=== PATIENT | female | born 1930 | race Caucasian/White ===

== ENCOUNTER → 2017-01-04 | Outpatient (CLI) | payer MEDICARE, BC ==
--- NOTE | 2017-01-04 10:56 | MM ---
Reason for exam: clinical finding. Last mammogram was performed 7 years ago. History: Patient is postmenopausal. Family history of breast cancer in maternal aunt and breast cancer in sister. Benign right mammotome panel of the right breast, January 25, 2010. Benign excisional biopsy of the right breast, 2006. Indicated problem(s): lump or thickening in the left breast. Physical Findings: Nurse Summary: A 2cm nodule in the left breast at 12 o'clock (nurse mj). MG 3D Diag Mammo W/Cad GRZEGORZ Bilateral CC and MLO view(s) were taken. Prior study comparison: January 11, 2010, right breast mammogram dig work up. The breast tissue is heterogeneously dense. This may lower the sensitivity of mammography. Finding: There is an intermediate concern, suspicious 2.5 mm equal density round mass located 2 cm from the nipple. Previous mammotome biopsy in the right breast. There is a 1cm area at 6 o'clock in the right breast 6cm from nipple. Large pacemaker left breast obscures portions. New finding since January 11, 2010. These results were verbally communicated with the patient and result sheet given to the patient on 01/04/17. ASSESSMENT: Incomplete: need additional imaging evaluation, BI-RAD 0 RECOMMENDATION: Ultrasound of both breasts. [facility] will attempt to contact patient to return for ultrasound.
--- NOTE | 2017-01-04 11:05 | USB ---
Reason for exam: clinical finding. History: Patient is postmenopausal. Family history of breast cancer in maternal aunt and breast cancer in sister. Benign right mammotome panel of the right breast, January 25, 2010. Benign excisional biopsy of the right breast, 2006. US Breast Limited BILAT Left breast ultrasound includes all four quadrants, the retroareolar region and axilla. Finding demonstrates a 5 x 3 x 5mm oval, cystic lesion at 1 o'clock, a 24 x 16 x 21mm oval, cystic lesion with debris at BB at 11 o'clock which correlates with mammographic findings. Right breast ultrasound demonstrates a 7 x 4 x 3mm lobulated, mixed lesion at 3 o'clock, a 7 x 6 x 10mm lobulated mixed lesion at 5 o'clock and a 10 x 7 x 9mm oval, mixed lesion at 6 o'clock which correlates with mammographic findings. These results were verbally communicated with the patient and result sheet given to the patient on 01/04/17. ASSESSMENT: Suspicious, BI-RAD 4 RECOMMENDATION: Aspiration of both breasts. Called Dr. Hernandez with mammographic findings and has scheduled an appointment for the patient for 01/15/17 at 9:[address] Langley. PRELIMINARY REPORT CALLED AND FAXED TO DR. LANGLEY ON 01/04/17.
--- NOTE | 2017-01-04 16:07 | US ---
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 Pt poor historian, believes she is on thyroid meds GLAND SIZE: Right Lobe: 2.9 x 1.4 x 0.9 cm Overall Parenchyma: heterogenous Left Lobe: 2.9 x 1.2 x 1.0 cm Overall Parenchyma: heterogeneous Isthmus Thickness: 0.2 cm Bilateral neck scanned, no evidence of lymphadenopathy. Bilateral thyroid heterogeneous, small in siz e, no definite nodules visualized IMPRESSION: Unremarkable small thyroid
== END | disposition home or self-care (01) ==
LOC: RADMAMWWP 08:27
PROVIDERS: ATTEND Family Medicine
DX: N63.20 Unspecified lump in the left breast, unspecified quadrant (principal); R92.8 Other abnormal and inconclusive findings on diagnostic imaging of breast; E01.0 Iodine-deficiency related diffuse (endemic) goiter
CPT/HCPCS: 76536; 76642; G0204; G0279

== ENCOUNTER → 2017-06-14 | Outpatient (CLI) | payer MEDICARE, BC ==
--- NOTE | 2017-06-14 11:07 | XR ---
EXAMINATION TYPE: XR chest 2V DATE OF EXAM: 06/14/2017 COMPARISON: Prior chest x-ray July 28, 2011. HISTORY: Hypercalcemia and adrenal tumor. TECHNIQUE: Frontal and lateral views of the chest are obtained. FINDINGS: Osseous structures show degenerative changes in both shoulders and acromioclavicular joint s. There is cardiomegaly with atherosclerotic thoracic aorta and dual lead pacemaker/AICD. There is c hronic emphysematous change with bibasilar scarring and bilateral hilar prominence favoring underlyin g pulmonary artery hypertension. There is right midlung opacity silhouetting portion of right minor f issure suspicious for focal atelectasis and/or infiltrate in the anterior inferior right upper lobe. Left lung is clear. IMPRESSION: Chronic emphysematous change and cardiomegaly with patchy right anterior inferior upper l obe atelectasis and/or infiltrate.
[2017-06-14 13:56] LABS: Ionized Calcium 5.1 mg/dL (4.5-5.3)
[2017-06-14 13:59] LABS: Calcium 10.2 mg/dL (8.4-10.2); Potassium 4.5 mmol/L (3.5-5.1)
--- NOTE | 2017-06-14 15:01 | CT ---
EXAMINATION TYPE: CT abdomen pelvis wo con DATE OF EXAM: 06/14/2017 COMPARISON: 10/25/2015 HISTORY: 86-year-old female Hypercalcemia, adrenal tumor CT DLP: 296.3 mGycm. Automated exposure control for dose reduction was used. TECHNIQUE: Contiguous axial scanning of the abdomen and pelvis without IV contrast. Coronal and sagit luis reconstructions performed. FINDINGS: Heart upper limits of normal in size with trace anterior basilar pericardial fluid. Pacer leads are p resent. Calcified left infrahilar lymph node. Chronic subpleural interstitial changes at the lung bas es without pleural effusion. Stable 2.1 x 1.3 cm ovoid density in the lower right paraesophageal region, axial image 8. Previously measured 2.1 x 1.5 cm in retrospect. There is a small hiatal hernia Stable 1.6 cm left hepatic cyst. Smaller cyst within the caudate lobe and inferior right hepatic lobe . Noncontrast appearance of the right adrenal gland, spleen, pancreas show no gross abnormality. Stable 4.0 cm cyst posterior right kidney. Smaller cortical cyst posterior lateral right kidney. Stab le to slightly larger 2.6 cm left midpole cyst. Stable 2.2 cm benign lipid rich adrenal adenoma with density of -19 Hounsfield units. No dilated small bowel, free fluid, or free air. No mesenteric or retroperitoneal lymphadenopathy. There is circumferential wall thickening along the ascending colon and left hemicolonic diverticulosi s, severe in the sigmoid colon. No surrounding inflammatory change seen. Prominent distention of the urinary bladder 13.2 cm greater caudal. Uterus is surgically absent. Pelv ic phleboliths. Neither ovary is clearly visualized. No abnormal fluid collection in the pelvis. Pelv ic floor relaxation. Bones: Degenerative changes at the hips and degenerative changes mid to lower lumbar spine. No osseou s destructive process. IMPRESSION: 1. Stable 2.2 cm lipid rich adrenal adenoma on the left is benign. 2. A 2.1 cm soft tissue nodule along the lower right paraesophageal region. Stability from 2015 sugg ests a benign etiology. A benign mesenchymal tumor such as a leiomyoma is a differential consideratio n. 3. Circumferential wall thickening of the ascending colon. Correlate for any symptoms of a nonspeci fic colitis. Direct visualization if indicated. 4. Diffuse colonic diverticulosis, severe in the sigmoid colon. No evidence for acute diverticulitis . 5. Marked urinary bladder distention. Correlate to ensure that this represents voluntary retention. 6. Small hiatal hernia. 7. Pelvic floor relaxation.
[2017-06-14 19:20] LABS: DHEA Sulfate 77.6 ug/dL (26.0-430.0)
[2017-06-14 19:23] LABS: Vitamin D 25 Hydroxy 26.1 ng/mL (30.0-100.0)
[2017-06-14 20:09] LABS: Parathyroid Hormone Intact 13.3 pg/mL (14.0-72.0)
== END | disposition home or self-care (01) ==
LOC: RADCTMAIN 10:38
PROVIDERS: ATTEND Internal Medicine Endocrinology, Diabetes & Metabolism
DX: D35.02 Benign neoplasm of left adrenal gland (principal); J43.9 Emphysema, unspecified; I51.7 Cardiomegaly; K22.8 Other specified diseases of esophagus; K57.30 Diverticulosis of large intestine without perforation or abscess without bleeding; N81.89 Other female genital prolapse; K44.9 Diaphragmatic hernia without obstruction or gangrene; E83.52 Hypercalcemia; I10 Essential (primary) hypertension
CPT/HCPCS: 71046; 74176; 80048; 82306; 82330; 82627; 83835; 83970

== ENCOUNTER 2020-08-05 09:29 | Day surgery (SDC) | payer MEDICARE, BC ==
[~2020-08-05 09:29] MED LIST: CLINDAMYCIN 600 MG in SODIUM CHLORIDE 0.9% 250 ML IRRIGATION PRN; CLINDAMYCIN 900 MG in DEXTROSE 5% IN WATER 50 ML IVPB PRN; SODIUM CHLORIDE 0.9% 1,000 ML IV SCH
[2020-08-05] MEDS ORDERED: SODIUM CHLORIDE 0.9% 500 ML 500 ML IV ONE (09:49)
[2020-08-05 10:05] VITALS: RESP 16; TEMP 99
[2020-08-05 10:08] LABS: Glucose,Whole Blood 104 mg/dL (75-99)
[2020-08-05] MEDS ORDERED: fentaNYL (PF) 50 MCG/ML 2 ML AMP ONE (10:50)
[2020-08-05] MEDS ORDERED: LIDOCAINE 1% INJ 10MG/ML (20 ML MDV) ONE ×2 (10:50)
[2020-08-05] MEDS ORDERED: fentaNYL (PF) 50 MCG/ML 2 ML AMP IV ONE (11:09)
[2020-08-05] MEDS ORDERED: MIDAZOLAM 2 MG/2 ML VIAL IV ONE (11:09)
[2020-08-05] MEDS: LIDOCAINE 1% INJ 10MG/ML (20 ML MDV) SQ ONE ×2 (11:09→11:22)
[2020-08-05] MEDS ORDERED: ACETAMINOPHEN TAB 325 MG TAB PO PRN (11:49)
--- NOTE | 2020-08-05 12:15 | P.PCN ---
Date of Procedure: 08/05/20 Preoperative Diagnosis: AICD battery depletion Postoperative Diagnosis: Replacement of the AICD with a permanent pacemaker, capping of the defibrillator leads Procedure(s) Performed: Replacement of the battery with permanent pacemaker, capping of the defib rillator coil leads. Description of Procedure: HISTORY: This is a 89-year-old female with history of dual-chamber AICD implantation. Recent evaluation showed that battery has reached the ELBA. Considering her age and dementia, after discussed with the son, it is decided that we will change the SUHAIL inhibitor pacemaker. The defibrillator coil leads will be capped. Patient is also pacemaker dependent. Patient is advised to have temporary pacemaker prior to the change of battery. CONSENT: I have discussed the risks and benefits as related to the above mentioned procedure and both sedation/analgesia as well as necessary blood product administration. The patient has indicated understanding and acceptance of the risks of the procedure discussed.. Temporary pacemaker insertion: Patient was prepped and draped in the usual fashion. The right groin is infiltrated with lidocaine. Right femoral vein was entered using Seldinger technique. A 6-Tamazight sheath was left in place. A 5- Tamazight balloontipped temporary pacemaker wire was advanced under fluoroscopy and was placed near the cardiac apex. Satisfactory threshold of pain. Pacemaker was left at a rate of 40 and output of 3. PROCEDURE: Patient was brought to the lab in a fasting state. Patient was given IV Versed and fentanyl for sedation. The skin over the existing pulse generator was infiltrated with lidocaine. An incision was made in the skin and was deepened until the pectoral fascia was exposed. Hemostasis was obtained. The existing pulse generator was pulled out of the pocket. The leads were disconnected and were checked for thresholds. Conscious Sedation: Versed 1mg Fentanyl 50 g Duration 38minutes THRESHOLDS: ATRIAL: The minimum atrial threshold is 1 V at a pulse width of 0.4 and impedance is 440 P-wave: 1.3 mV VENTRICULAR: the minimum patient threshold was 0.5 V at pulse width of 0.4 ms. The impedance is 390. R waves could not be measured. The leads: ATRIAL: This is manufactured by [employer]. The model number is 1688 TC/52 cm and the serial number is [id number] VENTRICULAR: This is manufactured by [employer]. The model number is 1571/65 [id number] THE EXPLANTED DEVICE: This is manufactured by [employer] THE NEW DEVICE: This is manufactured by [employer]. The model number is 2272 and the serial number is [id number] The leads were then connected to a new pulse generator. Pacemaker seems to function normally. The pocket was irrigated with antibiotics. The pocket was closed in the usual fashion. Pectoral fascia was closed with 2-0 Prolene, the subcutaneous tissue was closed with 3-0 Prolene and the skin was closed with 4-0 Prolene. Patient tolerated the procedure well . Patient will be monitored on the telemetry unit for 2-3 hours. If stable patient be discharged home later today.. Programming: DDDR mode. Minimum rate is 50 and maximum heart rate is 120. The pulse amplitude is 2.5 V and Atrium and 0.75 V in the ventricle PLAN: We will monitor for the next several hours. If stable patient be discharged home. Patient and son were advised that patient should keep the device and the site dry. Use Tylenol for pain it causes any bleeding or swelling, FEVER. FOLLOW-UP IN THE OFFICE IN ONE WEEK FALLOW UP: follow up with Dr. Woodard in one week
--- NOTE | 2020-08-05 12:50 | XR ---
EXAMINATION TYPE: XR chest 1V portable DATE OF EXAM: 08/05/2020 COMPARISON: Chest x-ray June 14, 2017 HISTORY: Arrhythmia, lead placement check. TECHNIQUE: Single AP portable frontal upright view of the chest is obtained. FINDINGS: Persistent cardiomegaly with stable positioning in the dual lead pacemaker/defibrillator. Persistent atherosclerotic thoracic aorta. Bilateral hilar prominence suggesting underlying pulmonary artery hypertension. Chronic parenchymal changes bilaterally. No new focal airspace opacity or pneum othorax seen. Suspect tiny bilateral pleural effusions. The osseous structures remain demineralized . IMPRESSION: As above.
[2020-08-05] MEDS ORDERED: CLINDAMYCIN 150 MG CAP PO STA (13:53)
[2020-08-05] MEDS ORDERED: DIGOXIN 250 MCG TAB PO SCH (14:00)
[2020-08-05 17:47] VITALS: BP 129/71; PULSE 58
== END 2020-08-05 16:00 | disposition home or self-care (01) ==
LOC: CATHEP 09:29
PROVIDERS: ATTEND Internal Medicine Cardiovascular Disease
DX: Z45.02 Encounter for adjustment and management of automatic implantable cardiac defibrillator (principal); I42.9 Cardiomyopathy, unspecified; E11.9 Type 2 diabetes mellitus without complications; I10 Essential (primary) hypertension; E78.2 Mixed hyperlipidemia; Z88.1 Allergy status to other antibiotic agents; I08.1 Rheumatic disorders of both mitral and tricuspid valves; Z88.2 Allergy status to sulfonamides; Z88.8 Allergy status to other drugs, medicaments and biological substances; Z79.899 Other long term (current) drug therapy; Z20.822 Contact with and (suspected) exposure to COVID-19; Z79.84 Long term (current) use of oral hypoglycemic drugs
CPT/HCPCS: 33208; 33241; 87635; 71045; C1894; C1769 ×3; C1785; J2250; J2001; J3010; 33228

== ENCOUNTER 2021-08-18 20:40 | Emergency (ER) | payer MEDICARE, BC ==
[2021-08-18 20:51] VITALS: RESP 18; TEMP 97
--- NOTE | 2021-08-18 21:04 | ED ---
General Adult HPI - General Chief complaint: Fall Stated complaint: Fall Time Seen by Provider: 08/18/21 20:54 Source: patient, EMS Mode of arrival: EMS - History of Present Illness Initial comments: Dictation was produced using [employer] dictation software. please excuse any g rammatical, word or spelling errors. Chief Complaint: 89-year-old female presents after fall History of Present Illness: This 89-year-old female she just got home from her granddaughter school to attend a [place] ceremony. She states she went up the stairs. She took one step and lost her balance fell backwards. She states she struck her head. EMS was called patient is brought to the emergency room. Patient complaining of right-sided lateral back pain per she states that she feels like she broke some ribs. She has no shortness of breath. There is some suspicious of loss of consciousness per she does not take any anticoagulation medications. The ROS documented in this emergency department record has been reviewed and confirmed by me. Those systems with pertinent positive or negative responses have been documented in the HPI. All other systems are other negative and/or noncontributory. PHYSICAL EXAM: General Impression: Alert and oriented x3, not in acute distress HEENT: Normocephalic atraumatic, extra-ocular movements intact, pupils equal and reactive to light bilaterally, mucous membranes moist. Cardiovascular: Heart regular rate and rhythm Chest: Able to complete full sentences, no retractions, no tachypnea Abdomen: abdomen soft, non-tender, non-distended, no organomegaly Musculoskeletal: Pulses present and equal in all extremities, no peripheral edema, palpatory tenderness to the right posterior ribs, bilateral lung sounds, no signs of extremity injury, abdomen is soft and nontender Motor: no focal deficits noted Neurological: CN II-XII grossly intact, no focal motor or sensory deficits noted Skin: Intact with no visualized rashes Psych: Normal affect and mood ED course: 89-year-old female presents emergency Department with upper back pain and head injury after fall. Vital signs upon arrival are within acceptable limits. Computed tomography scan of the head and C-spine shows no acute intracranial process. There is a posterior scalp hematoma. There is a pulmonary nodule. Computed tomography scan of the chest shows no evidence for rib fracture. There does appear to be interstitial lung disease that's visualized from 2016. CBC metabolic panel is unremarkable. Patient reevaluated at bedside at 10:30 PM. Patient initially refused pain medications however upon reevaluation she was agreeable. Patient given 4 mg of IV morphine. - Related Data Home Medications Medication Instructions Recorded Confirmed Ascorbic Acid [Vitamin C] 500 mg PO DAILY 08/05/20 08/05/20 Aspirin 81 mg PO DAILY 08/05/20 08/05/20 Cyanocobalamin (Vitamin B-12) 1,000 mcg PO DAILY 08/05/20 08/05/20 [Vitamin B-12] Digoxin [Lanoxin] 250 mcg PO DAILY 08/05/20 08/05/20 Donepezil [Aricept] 5 mg PO HS 08/05/20 08/05/20 Fenofibrate Nanocrystallized 145 mg PO DAILY 08/05/20 08/05/20 [Tricor] Levothyroxine Sodium [Synthroid] 100 mcg PO DAILY 08/05/20 08/05/20 Simvastatin [Zocor] 20 mg PO HS 08/05/20 08/05/20 carvediloL [Coreg] 3.125 mg PO BID 08/05/20 08/05/20 metFORMIN HCL 500 mg PO PC-BID 08/05/20 08/05/20 sitaGLIPtin PHOSPHATE [Januvia] 25 mg PO DAILY 08/05/20 08/05/20 Previous Rx's Medication Instructions Recorded clindamycin HCL [Cleocin] 300 mg PO Q8H #10 cap 08/05/20 Allergies Allergy/AdvReac Type Severity Reaction Status Date / Time cephalexin Allergy Unknown Verified 08/18/21 20:51 nitrofurantoin Allergy Unknown Verified 08/18/21 20:51 Sulfa (Sulfonamide Allergy Unknown Verified 08/18/21 20:51 Antibiotics) Review of Systems ROS Statement: Those systems with pertinent positive or pertinent negative responses have been documented in the HPI. ROS Other: All systems not noted in ROS Statement are negative. Past Medical History Past Medical History: Chest Pain / Angina, Dementia History of Any Multi-Drug Resistant Organisms: None Reported Past Surgical History: Pacemaker Past Psychological History: No Psychological Hx Reported Smoking Status: Never smoker Past Alcohol Use History: None Reported Past Drug Use History: None Reported Course Vital Signs 08/18/21 08/18/21 08/18/21 20:43 21:00 22:45 Temperature 97.0 F L Pulse Rate 60 63 64 Respiratory 18 18 18 Rate Blood Pressure 174/78 175/72 144/64 O2 Sat by Pulse 99 97 98 Oximetry Medical Decision Making - Lab Data Result diagrams: 08/18/21 21:04 08/18/21 22:45 Lab Results 08/18/21 08/18/21 08/18/21 Range/Units 21:04 21:04 22:45 WBC 6.8 (3.8-10.6) k/uL RBC 4.32 (3.80-5.40) m/uL Hgb 13.5 (11.4-16.0) gm/dL Hct 41.2 (34.0-46.0) % MCV 95.4 (80.0-100.0) fL MCH 31.3 (25.0-35.0) pg MCHC 32.8 (31.0-37.0) g/dL RDW 13.4 (11.5-15.5) % Plt Count 213 (150-450) k/uL MPV 8.5 Neutrophils % 78 % Lymphocytes % 9 % Monocytes % 8 % Eosinophils % 3 % Basophils % 1 % Neutrophils # 5.3 (1.3-7.7) k/uL Lymphocytes # 0.6 L (1.0-4.8) k/uL Monocytes # 0.5 (0-1.0) k/uL Eosinophils # 0.2 (0-0.7) k/uL Basophils # 0.1 (0-0.2) k/uL PT 10.9 (9.0-12.0) sec INR 1.0 (<1.2) APTT 19.1 L (22.0-30.0) sec Sodium 137 (137-145) mmol/L Potassium 4.7 (3.5-5.1) mmol/L Chloride 107 (98-107) mmol/L Carbon Dioxide 20 L (22-30) mmol/L Anion Gap 10 mmol/L BUN 23 H (7-17) mg/dL Creatinine 0.81 (0.52-1.04) mg/dL Est GFR (CKD-EPI)AfAm 76 (>60 ml/min/1.73 sqM) Est GFR (CKD-EPI)NonAf 66 (>60 ml/min/1.73 sqM) Glucose 152 H (74-99) mg/dL Calcium 9.5 (8.4-10.2) mg/dL Disposition Clinical Impression: Fall, Cervical strain, Head contusion Disposition: HOME SELF-CARE Condition: Good Instructions (If sedation given, give patient instructions): Fall Prevention for Older Adults (ED) Is patient prescribed a controlled substance at d/c from ED?: No Referrals: None,Stated [Primary Care Provider] - 1-2 days
--- NOTE | 2021-08-18 21:41 | CT ---
EXAMINATION TYPE: CT brain cspine wo con CT DLP: 1238.6 mGycm, Automated exposure control for dose reduction was used. DATE OF EXAM: 08/18/2021 9:30 PM COMPARISON: None.. CLINICAL INDICATION:Female, 89 years old with history of fall; fall, hit back of head TECHNIQUE: Brain: Multiple axial CT images of the brain were obtained without IV contrast. Cspine: Axial CT images from the skull base to the inferior aspect of T2 we obtained without intraven ous contrast. Coronal and sagittal reformatted images were also reviewed. FINDINGS: Brain: Extra-axial spaces: No abnormal extra-axial fluid collections. Ventricular system: Dilatation in proportion to cerebral atrophy. Cerebral parenchyma: Cerebral atrophy. No acute intraparenchymal hemorrhage or mass effect. The corona -white junction is well differentiated. Scattered hypoattenuating areas are seen within the white mat ter. Cerebellum: Unremarkable. Mass effect: No evidence of midline shift. Intracranial vasculature: Atherosclerotic calcifications of the intracranial vessels. Soft tissues: Posterior scalp hematoma measuring 2.9 x 1.2 cm. Calvarium/osseous structures: No depressed skull fracture. Paranasal sinuses and mastoid air cells: Trace left mastoid air cell effusion. Visualized orbits: Bilateral aphakia Cervical spine: Fracture: None. Osseous structures: Multilevel degenerative disc disease changes with endplate spurring and disc oste ophyte complex's. Vertebral alignment: Within normal limits. Spinal canal/Neural Foramina: No evidence of significant spinal canal narrowing. No evidence for sign ificant neural foraminal stenosis. Neck soft tissues: Prevertebral soft tissues are within normal limits. Calcification of the nuchal li gament. Other: The airway is patent. Streaky atelectasis and scarring within the lung apices. Partially visua lized left upper lobe pulmonary nodule measuring 5 mm in ground glass with nodularity and streaky opa cities within the right upper lobe. There is an expiratory view with thickening of interlobular septa . IMPRESSION: 1. No acute intracranial process. 2. Nonspecific white matter changes, likely secondary to chronic small vessel ischemic disease. 3. Posterior scalp hematoma. 4. No evidence of cervical spine fracture. 5. Mild multilevel degenerative disc disease. 6. Left upper lobe 5 mm pulmonary nodule and right upper lobe groundglass and nodular opacities. 7. Pulmonary vascular congestion correlate for congestive heart failure.
[2021-08-18 21:57] LABS: Prothrombin Time 10.9 sec (9.0-12.0)
--- NOTE | 2021-08-18 22:06 | CT ---
EXAMINATION TYPE: CT chest wo con CT DLP: 322.5 mGycm, Automated exposure control for dose reduction was used. DATE OF EXAM: 08/18/2021 9:32 PM COMPARISON: None CLINICAL INDICATION:Female, 89 years old with history of fall, rib pain;, fall, rib pain TECHNIQUE: Multiple axial images were obtained through the chest without IV contrast. Lack of IV or o ral contrast limits evaluation of solid and hollow organ viscera. FINDINGS: LUNGS/ PLEURA: No evidence of focal consolidation, pneumothorax or pleural effusion. Peripheral retic ulation likely on the basis of interstitial lung disease. 4 mm left upper lobe pulmonary nodule. AIRWAY: Patent and unremarkable.. HEART: Is mildly enlarged for size. Cardiac conduction device with leads terminating in the right mayra tricle and right atrium. MEDIASTINUM: Partially calcified lymph nodes are seen throughout the mediastinum.Likely representing sequela of granulomatous disease from prior infection. VASCULATURE: No aortic aneurysm. MUSCULOSKELETAL: No acute osseous abnormalities. Multilevel disc degeneration changes throughout the spine. SOFT TISSUES/LYMPH NODES: Unremarkable. LOWER NECK: No significant findings. UPPER ABDOMEN: Right renal cysts measuring up to 4.7 cm. Nonobstructing right renal calculus measurin g 3 mm. Left adrenal adenoma measuring 0.7 cm consistent with benign adrenal adenoma. Cholecystectomy clips are present. IMPRESSION: 1. No evidence for rib fracture. 2. Pulmonary interstitial lung disease partially visualized drain back to at least 2016.
[2021-08-18 22:11] LABS: Partial Thromboplastin Time 19.1 sec (22.0-30.0)
[2021-08-18 22:14] LABS: Basophils # (A) 0.1 k/uL (0-0.2); Basophils % (A) 1 %; Eosinophils # (A) 0.2 k/uL (0-0.7); Eosinophils % (A) 3 %; HCT 41.2 % (34.0-46.0); HGB 13.5 gm/dL (11.4-16.0); Lymphocytes # (A) 0.6 k/uL (1.0-4.8); Lymphocytes % (A) 9 %; MCH 31.3 pg (25.0-35.0); MCHC 32.8 g/dL (31.0-37.0); MCV 95.4 fL (80.0-100.0); Mean Platelet Volume 8.5; Monocytes # (A) 0.5 k/uL (0-1.0); Monocytes % (A) 8 %; Neutrophils # (A) 5.3 k/uL (1.3-7.7); Neutrophils % (A) 78 %; Platelet Count 213 k/uL (150-450); RBC 4.32 m/uL (3.80-5.40); RDW 13.4 % (11.5-15.5); WBC 6.8 k/uL (3.8-10.6)
[2021-08-18] MEDS ORDERED: MORPHINE SULFATE 4 MG/ML SYRINGE IV STA (22:24)
[2021-08-18 22:59] LABS: Calcium 9.5 mg/dL (8.4-10.2); Potassium 4.7 mmol/L (3.5-5.1)
[2021-08-18 23:28] VITALS: BP 128/65; PULSE 63
== END 2021-08-18 23:26 | disposition home or self-care (01) ==
LOC: EC 20:40
DX: S16.1XXA Strain of muscle, fascia and tendon at neck level, initial encounter (principal); S00.03XA Contusion of scalp, initial encounter; M54.6 Pain in thoracic spine; Z79.82 Long term (current) use of aspirin; Z88.1 Allergy status to other antibiotic agents; Z88.2 Allergy status to sulfonamides; Z88.3 Allergy status to other anti-infective agents; W01.0XXA Fall on same level from slipping, tripping and stumbling without subsequent striking against object, initial encounter; Y92.219 Unspecified school as the place of occurrence of the external cause
CPT/HCPCS: 36415; 93005; 80048; 85025; 85610; 85730; 72125; 70450; 71250; 99284; 96374; J2270

== ENCOUNTER 2021-08-20 12:24 | Inpatient (IN) | payer MEDICARE, BC ==
[2021-08-20] MEDS ORDERED: MECLIZINE 25 MG TAB PO STA (12:47)
[2021-08-20 13:23] LABS: Basophils % (A) 1 %; Eosinophils # (A) 0.1 k/uL (0-0.7); Eosinophils % (A) 2 %; HCT 40.9 % (34.0-46.0); HGB 13.2 gm/dL (11.4-16.0); Lymphocytes # (A) 0.4 k/uL (1.0-4.8); Lymphocytes % (A) 7 %; MCH 29.9 pg (25.0-35.0); MCHC 32.3 g/dL (31.0-37.0); MCV 92.5 fL (80.0-100.0); Mean Platelet Volume 7.1; Monocytes # (A) 0.4 k/uL (0-1.0); Monocytes % (A) 6 %; Neutrophils # (A) 5.4 k/uL (1.3-7.7); Neutrophils % (A) 84 %; Platelet Count 289 k/uL (150-450); RBC 4.42 m/uL (3.80-5.40); RDW 13.2 % (11.5-15.5); WBC 6.5 k/uL (3.8-10.6)
[2021-08-20 13:32] LABS: Albumin 3.7 g/dL (3.5-5.0); Calcium 9.1 mg/dL (8.4-10.2); Magnesium 1.5 mg/dL (1.6-2.3); Potassium 4.2 mmol/L (3.5-5.1); Total Bilirubin 0.6 mg/dL (0.2-1.3); Total Protein 6.8 g/dL (6.3-8.2)
[2021-08-20 13:38] LABS: Partial Thromboplastin Time 22.7 sec (22.0-30.0); Prothrombin Time 10.7 sec (9.0-12.0)
--- NOTE | 2021-08-20 13:49 | CT ---
EXAMINATION TYPE: CT brain wo con CT DLP: 1129.4 mGycm, Automated exposure control for dose reduction was used. DATE OF EXAM: 08/20/2021 1:39 PM COMPARISON: Prior CT Brain from 08/18/2021. CLINICAL INDICATION:Female, 89 years old with history of Trauma, Fall TECHNIQUE: Brain: Multiple axial CT images of the brain were obtained without IV contrast. FINDINGS: Brain: Extra-axial spaces: No abnormal extra-axial fluid collections. Ventricular system: Dilatation in proportion to cerebral atrophy. Cerebral parenchyma: No acute intraparenchymal hemorrhage or mass effect. The corona-white junction is well differentiated. Scattered hypoattenuating areas are seen within the white matter. Cerebellum: Unremarkable. Mass effect: No evidence of midline shift. Intracranial vasculature: Atherosclerotic calcifications of the intracranial vessels. Soft tissues: Posterior scalp hematoma measuring 2.5 x 0.8 cm. Calvarium/osseous structures: No depressed skull fracture. Paranasal sinuses and mastoid air cells: Mild scattered paranasal sinus disease. Visualized orbits: Bilateral aphakia IMPRESSION: 1. No acute intracranial process. 2. Posterior scalp hematoma. 3. Nonspecific white matter changes, likely secondary to chronic small vessel ischemic disease.
--- NOTE | 2021-08-20 13:50 | XR ---
EXAMINATION TYPE: XR chest 2V DATE OF EXAM: 08/20/2021 1:39 PM COMPARISON: Chest radiographs from 08/05/2020. TECHNIQUE: XR chest 2V Frontal and lateral views of the chest. CLINICAL INDICATION:Female, 89 years old with history of Chest Pain; FINDINGS: Lungs/Pleura: There is flattening of the diaphragm with increased lucency of the lungs. No evidence o f pneumothorax, pleural effusion or focal consolidation. Streaky atelectasis within the right midlung is unchanged. Pulmonary vascularity: Unremarkable. Heart/mediastinum: Cardiomediastinal silhouette is enlarged and stable. Two lead cardiac conduction d evice overlying the left hemithorax with lead tips projecting over the right ventricle and right atri um. Musculoskeletal: No acute osseous pathology. IMPRESSION: 1. Chronic changes without acute pulmonary process. No significant change from prior. 2. Similar cardiomegaly. 3. COPD changes.
--- NOTE | 2021-08-20 13:54 | ED ---
General Adult HPI - General Chief complaint: Head Injury Stated complaint: fall, head injury Time Seen by Provider: 08/20/21 12:30 Source: patient, RN notes reviewed, old records reviewed Mode of arrival: ambulatory Limitations: no limitations - History of Present Illness Initial comments: This is an 89-year-old female presents emergency department after having fallen 2 days ago she fell backwards front of her daughter and hit the back of her head. Patient was brought to the emergency department CAT scans were done at that time and found to be negative. Patient however ever since his been extremely dizzy and needs assistance because she so dishes and a fall over. Patient continues to complain of posterior headache. Patient denies any neck pa in. Patient denies numbness weakness. Patient denies any chest pain palpitations difficulty breathing. - Related Data Home Medications Medication Instructions Recorded Confirmed Ascorbic Acid [Vitamin C] 500 mg PO DAILY 08/05/20 08/05/20 Aspirin 81 mg PO DAILY 08/05/20 08/05/20 Cyanocobalamin (Vitamin B-12) 1,000 mcg PO DAILY 08/05/20 08/05/20 [Vitamin B-12] Digoxin [Lanoxin] 250 mcg PO DAILY 08/05/20 08/05/20 Donepezil [Aricept] 5 mg PO HS 08/05/20 08/05/20 Fenofibrate Nanocrystallized 145 mg PO DAILY 08/05/20 08/05/20 [Tricor] Levothyroxine Sodium [Synthroid] 100 mcg PO DAILY 08/05/20 08/05/20 Simvastatin [Zocor] 20 mg PO HS 08/05/20 08/05/20 carvediloL [Coreg] 3.125 mg PO BID 08/05/20 08/05/20 metFORMIN HCL 500 mg PO PC-BID 08/05/20 08/05/20 sitaGLIPtin PHOSPHATE [Januvia] 25 mg PO DAILY 08/05/20 08/05/20 Previous Rx's Medication Instructions Recorded clindamycin HCL [Cleocin] 300 mg PO Q8H #10 cap 08/05/20 Allergies Allergy/AdvReac Type Severity Reaction Status Date / Time cephalexin Allergy Unknown Verified 08/20/21 12:33 nitrofurantoin Allergy Unknown Verified 08/20/21 12:33 Sulfa (Sulfonamide Allergy Unknown Verified 08/20/21 12:33 Antibiotics) Review of Systems ROS Statement: Those systems with pertinent positive or pertinent negative responses have been documented in the HPI. ROS Other: All systems not noted in ROS Statement are negative. Past Medical History Past Medical History: Chest Pain / Angina, Dementia History of Any Multi-Drug Resistant Organisms: None Reported Past Surgical History: Pacemaker Past Psychological History: No Psychological Hx Reported Smoking Status: Never smoker Past Alcohol Use History: None Reported Past Drug Use History: None Reported General Exam - General Exam Comments Initial Comments: GENERAL: Patient is well-developed and well-nourished. Patient is nontoxic and well- hydrated and is in mild distress. ENT: Neck is soft and supple. No significant lymphadenopathy is noted. Oropharynx is clear. Moist mucous membranes. Neck has full range of motion without eliciting any pain. EYES: The sclera were anicteric and conjunctiva were pink and moist. Extraocular movements were intact and pupils were equal round and reactive to light. Eyelids were unremarkable. PULMONARY: Unlabored respirations. Good breath sounds bilaterally. No audible rales rhonchi or wheezing was noted. CARDIOVASCULAR: There is a regular rate and rhythm without any murmurs gallops or rubs. ABDOMEN: Soft and nontender with normal bowel sounds. SKIN: Skin is clear with no lesions or rashes and otherwise unremarkable. NEUROLOGIC: Patient is alert and oriented x3. Cranial nerves II through XII are grossly intact. Motor and sensory are also intact. Normal speech, volume and content. Symmetrical smile. Finger to nose testing is normal bilaterally MUSCULOSKELETAL: Normal extremities with adequate strength and full range of motion. No lower extremity swelling or edema. No calf tenderness. LYMPHATICS: No significant lymphadenopathy is noted PSYCHIATRIC: Normal psychiatric evaluation. Limitations: no limitations Course Vital Signs 08/20/21 12:27 Temperature 98.1 F Pulse Rate 51 L Respiratory 18 Rate Blood Pressure 148/58 O2 Sat by Pulse 98 Oximetry Medical Decision Making - Medical Decision Making EKG shows a paced rhythm at 51 bpm CO interval is 264 QRS is 160 QT interval [address] of the brain shows no acute abnormality. I spoke with Dr. SWARTZ he agreed to admit the patient to the patient consult to Dr. Arzola and he agreed to come see the patient and agreed to take the consult. I also consult medicine. I wrote admitting orders. - Lab Data Result diagrams: 08/20/21 13:10 08/20/21 13:10 Lab Results 08/20/21 08/20/21 08/20/21 Range/Units 13:10 13:10 13:10 WBC 6.5 (3.8-10.6) k/uL RBC 4.42 (3.80-5.40) m/uL Hgb 13.2 (11.4-16.0) gm/dL Hct 40.9 (34.0-46.0) % MCV 92.5 (80.0-100.0) fL MCH 29.9 (25.0-35.0) pg MCHC 32.3 (31.0-37.0) g/dL RDW 13.2 (11.5-15.5) % Plt Count 289 (150-450) k/uL MPV 7.1 Neutrophils % 84 % Lymphocytes % 7 % Monocytes % 6 % Eosinophils % 2 % Basophils % 1 % Neutrophils # 5.4 (1.3-7.7) k/uL Lymphocytes # 0.4 L (1.0-4.8) k/uL Monocytes # 0.4 (0-1.0) k/uL Eosinophils # 0.1 (0-0.7) k/uL Basophils # 0.0 (0-0.2) k/uL PT 10.7 (9.0-12.0) sec INR 1.0 (<1.2) APTT 22.7 (22.0-30.0) sec Sodium 134 L (137-145) mmol/L Potassium 4.2 (3.5-5.1) mmol/L Chloride 104 (98-107) mmol/L Carbon Dioxide 21 L (22-30) mmol/L Anion Gap 9 mmol/L BUN 19 H (7-17) mg/dL Creatinine 0.74 (0.52-1.04) mg/dL Est GFR (CKD-EPI)AfAm 84 (>60 ml/min/1.73 sqM) Est GFR (CKD-EPI)NonAf 73 (>60 ml/min/1.73 sqM) Glucose 131 H (74-99) mg/dL Calcium 9.1 (8.4-10.2) mg/dL Magnesium 1.5 L (1.6-2.3) mg/dL Total Bilirubin 0.6 (0.2-1.3) mg/dL AST 38 H (14-36) U/L ALT 33 (4-34) U/L Alkaline Phosphatase 72 (38-126) U/L Troponin I (0.000-0.034) ng/mL Total Protein 6.8 (6.3-8.2) g/dL Albumin 3.7 (3.5-5.0) g/dL 08/20/21 Range/Units 13:10 WBC (3.8-10.6) k/uL RBC (3.80-5.40) m/uL Hgb (11.4-16.0) gm/dL Hct (34.0-46.0) % MCV (80.0-100.0) fL MCH (25.0-35.0) pg MCHC (31.0-37.0) g/dL RDW (11.5-15.5) % Plt Count (150-450) k/uL MPV Neutrophils % % Lymphocytes % % Monocytes % % Eosinophils % % Basophils % % Neutrophils # (1.3-7.7) k/uL Lymphocytes # (1.0-4.8) k/uL Monocytes # (0-1.0) k/uL Eosinophils # (0-0.7) k/uL Basophils # (0-0.2) k/uL PT (9.0-12.0) sec INR (<1.2) APTT (22.0-30.0) sec Sodium (137-145) mmol/L Potassium (3.5-5.1) mmol/L Chloride (98-107) mmol/L Carbon Dioxide (22-30) mmol/L Anion Gap mmol/L BUN (7-17) mg/dL Creatinine (0.52-1.04) mg/dL Est GFR (CKD-EPI)AfAm (>60 ml/min/1.73 sqM) Est GFR (CKD-EPI)NonAf (>60 ml/min/1.73 sqM) Glucose (74-99) mg/dL Calcium (8.4-10.2) mg/dL Magnesium (1.6-2.3) mg/dL Total Bilirubin (0.2-1.3) mg/dL AST (14-36) U/L ALT (4-34) U/L Alkaline Phosphatase (38-126) U/L Troponin I 0.015 (0.000-0.034) ng/mL Total Protein (6.3-8.2) g/dL Albumin (3.5-5.0) g/dL Disposition Clinical Impression: Vertigo, Hypomagnesemia Disposition: ADMITTED IP TO THIS HOSP Referrals: Nonstaff,Physician [Primary Care Provider] - 1-2 days Time of Disposition: 14:25
[2021-08-20] MEDS ORDERED: MAGNESIUM SULFATE-D5W PMX 1 GM in DEXTROSE/WATER 1 100ML.BAG IVPB ONE (14:03)
[2021-08-20] MEDS ORDERED: SODIUM CHLORIDE 0.9% 1,000 ML IV ONE (14:25)
[2021-08-20] MEDS ORDERED: MECLIZINE 25 MG TAB PO PRN (14:27)
[2021-08-20] MEDS ORDERED: Potassium Replacement Protocol 1 EACH MISC MISCELLANE PRN (16:45)
[2021-08-20] MEDS ORDERED: Magnesium Replacement Protocol 1 EACH MISC MISCELLANE PRN (16:45)
[2021-08-20] MEDS: DIGOXIN 250 MCG TAB PO SCH (18:00)
--- NOTE | 2021-08-20 18:05 | CONS ---
CONSULTATION DATE OF SERVICE: 08/20/2021 REASON FOR CONSULTATION: Advice regarding diabetes mellitus and other medical issues, requested by Surgery. HISTORY OF PRESENT ILLNESS: This 89-year-old woman with a past medical history of dementia, history of diabetes mellitus, actually fell and hit the back of the head. The patient had significant hematoma. The patient complained of rib pain and dizziness and some nausea and vomiting subsequently. There is no history of any fever, rigor or chills at this time. CT scan of the brain which was done and which I reviewed personally showed no acute abnormality; posterior scalp hematoma was also noted. PAST MEDICAL HISTORY: Dementia, diabetes mellitus, hypothyroidism. HOME MEDICATIONS: Reviewed. They include metformin. Doses and the rest of the medications noted. ALLERGIES: ALLERGIES INCLUDE CEPHALEXIN. FAMILY HISTORY: ntd SOCIAL HISTORY: No history of smoking. REVIEW OF SYSTEMS: Fourteen-point review of systems negative except as mentioned earlier. PHYSICAL EXAMINATION: Pulse is 55, blood pressure 140/50, respiration 15. HEENT: Conjunctivae normal. NECK: No jugular venous distention. CARDIOVASCULAR: S1, S2 muffled. RESPIRATION: Breath sounds diminished at the bases. No rhonchi. No crackles. ABDOMEN: Soft, nontender. LEGS: No edema. No swelling. NERVOUS SYSTEM: Higher functions as mentioned earlier. Minimal nystagmus present. Lateral movement on the left eye is sluggish; otherwise, minimal incoordination also present on the left side. Gait not tested. SKIN: No ulcer, rash, bleeding. JOINTS: No active deforming arthropathy. LABS: Reviewed. CT scan reviewed. ASSESSMENT: 1. Fall and posterior scalp hematoma. 2. Nausea, vomiting, dizziness. Rule out TIA or vertebrobasilar ischemia. 3. Possible concussion. 4. Hypomagnesemia. 5. Dementia. 6. Diabetes mellitus, type 2. 7. Multiple medical problems. RECOMMENDATIONS AND DISCUSSION: In this 89-year-old woman who presented with multiple complex medical issues, we will monitor the patient closely, continue the current medication. Symptomatic treatment will be provided. Otherwise, neuro checks, neurology evaluation, complete neurovascular workup. Supplement check magnesium. We will follow the patient closely with you. Resume the home medications. Thank you for letting us participate in the care of this patient. MMODL / IJN: [id number] / GARRISON
[2021-08-20] MEDS: SODIUM CHLORIDE 0.9% 1,000 ML IV SCH (21:17)
[2021-08-20] MEDS: MECLIZINE 25 MG TAB PO SCH (21:42)
[2021-08-20] MEDS: carvediloL 3.125 MG TAB PO SCH (21:42)
[2021-08-20] MEDS: metFORMIN 500 MG TAB PO SCH (21:42)
[2021-08-20] MEDS: DONEPEZIL 5 MG TAB PO SCH (21:42)
[2021-08-21] MEDS: IBUPROFEN 600 MG TAB PO PRN ×2 (01:18→23:35)
[2021-08-21] MEDS: SODIUM CHLORIDE 0.9% 1,000 ML IV SCH (05:02)
[2021-08-21] MEDS: LEVOTHYROXINE 88 MCG TAB PO SCH (09:42)
[2021-08-21] MEDS: FAMOTIDINE 20 MG TAB PO SCH (09:43)
[2021-08-21] MEDS: CYANOCOBALAMIN 500 MCG TAB PO SCH (09:43)
[2021-08-21] MEDS: ASCORBIC ACID 500 MG TAB PO SCH (09:43)
[2021-08-21] MEDS: metFORMIN 500 MG TAB PO SCH ×2 (09:43→21:13)
[2021-08-21] MEDS: MECLIZINE 25 MG TAB PO SCH ×3 (09:43→21:13)
[2021-08-21] MEDS: LINAGLIPTIN 5 MG TABLET PO SCH (09:43)
[2021-08-21] MEDS: carvediloL 3.125 MG TAB PO SCH ×2 (09:44→21:13)
--- NOTE | 2021-08-21 11:34 | P.GSHP ---
History of Present Illness H&P Date: 08/21/21 Chief Complaint: Status post fall 89-year-old female fell 3-4 days ago while at home. Landed on her back in the posterior scalp. She came to the hospital for evaluation. Imaging including CAT scans of the head and chest were negative for acute injury. Apparently after discharge patient had persistent dizziness. Dizziness seems to be new since the fall. Repeat CAT scan brain yesterday was normal except for a posterior scalp hematoma. Neurology has been consulted. Admitted to the trauma service because of the recent fall. - Review of Systems Comment: The patient denies any acute changes in vision or hearing, no dysphagia or odynophagia, no chest pain or shortness of breath, no dysuria or hematuria, no headache, no runny nose, no rectal bleeding or melena, no unexplained weight loss Past Medical History Past Medical History: Chest Pain / Angina, Dementia, Diabetes Mellitus, Thyroid Disorder History of Any Multi-Drug Resistant Organisms: None Reported Past Surgical History: Cholecystectomy, Pacemaker Past Anesthesia/Blood Transfusion Reactions: No Reported Reaction Type of Cardiac Device: Permanent Pacemaker Device Placement Date:: 07/18/20 Past Psychological History: No Psychological Hx Reported Smoking Status: Never smoker Past Alcohol Use History: None Reported Past Drug Use History: None Reported - Past Family History Mother History Unknown: Yes Medications and Allergies Home Medications Medication Instructions Recorded Confirmed Type Ascorbic Acid [Vitamin C] 500 mg PO DAILY 08/05/20 08/20/21 History Cyanocobalamin (Vitamin B-12) 1,000 mcg PO DAILY 08/05/20 08/20/21 History [Vitamin B-12] Digoxin [Lanoxin] 250 mcg PO SUTUWEFRSA 08/05/20 08/20/21 History Donepezil [Aricept] 5 mg PO HS 08/05/20 08/20/21 History carvediloL [Coreg] 3.125 mg PO BID 08/05/20 08/20/21 History sitaGLIPtin PHOSPHATE [Januvia] 25 mg PO AC-BRKFST 08/05/20 08/20/21 History Levothyroxine Sodium [Synthroid] 88 mcg PO DAILY 08/20/21 08/20/21 History metFORMIN HCL ER [Glucophage XR] 500 mg PO BID 08/20/21 08/20/21 History Allergies Allergy/AdvReac Type Severity Reaction Status Date / Time cephalexin Allergy Unknown Verified 08/20/21 15:22 nitrofurantoin Allergy Unknown Verified 08/20/21 15:22 Sulfa (Sulfonamide Allergy Unknown Verified 08/20/21 15:22 Antibiotics) Surgical - Exam Vital Signs Temp Pulse Resp BP Pulse Ox 98.1 F 51 L 18 148/58 98 08/20/21 12:27 08/20/21 12:27 08/20/21 12:27 08/20/21 12:27 08/20/21 12:27 Physical exam: General: Well-developed, well-nourished HEENT: Posterior scalp swelling, no palpable fracture, sclerae nonicteric Abdomen: Nontender, nondistended Extremities: No edema Neuro: Alert and oriented Results - Labs 08/20/21 13:10 08/20/21 13:10 Abnormal Lab Results - Last 24 Hours (Table) 08/20/21 08/20/21 Range/Units 13:10 13:10 Lymphocytes # 0.4 L (1.0-4.8) k/uL Sodium 134 L (137-145) mmol/L Carbon Dioxide 21 L (22-30) mmol/L BUN 19 H (7-17) mg/dL Glucose 131 H (74-99) mg/dL Magnesium 1.5 L (1.6-2.3) mg/dL AST 38 H (14-36) U/L Diabetes panel 08/20/21 Range/Units 13:10 Sodium 134 L (137-145) mmol/L Potassium 4.2 (3.5-5.1) mmol/L Chloride 104 (98-107) mmol/L Carbon Dioxide 21 L (22-30) mmol/L BUN 19 H (7-17) mg/dL Creatinine 0.74 (0.52-1.04) mg/dL Glucose 131 H (74-99) mg/dL Calcium 9.1 (8.4-10.2) mg/dL AST 38 H (14-36) U/L ALT 33 (4-34) U/L Alkaline Phosphatase 72 (38-126) U/L Total Protein 6.8 (6.3-8.2) g/dL Albumin 3.7 (3.5-5.0) g/dL Calcium panel 08/20/21 Range/Units 13:10 Calcium 9.1 (8.4-10.2) mg/dL Albumin 3.7 (3.5-5.0) g/dL Pituitary panel 08/20/21 Range/Units 13:10 Sodium 134 L (137-145) mmol/L Potassium 4.2 (3.5-5.1) mmol/L Chloride 104 (98-107) mmol/L Carbon Dioxide 21 L (22-30) mmol/L BUN 19 H (7-17) mg/dL Creatinine 0.74 (0.52-1.04) mg/dL Glucose 131 H (74-99) mg/dL Calcium 9.1 (8.4-10.2) mg/dL Adrenal panel 08/20/21 Range/Units 13:10 Sodium 134 L (137-145) mmol/L Potassium 4.2 (3.5-5.1) mmol/L Chloride 104 (98-107) mmol/L Carbon Dioxide 21 L (22-30) mmol/L BUN 19 H (7-17) mg/dL Creatinine 0.74 (0.52-1.04) mg/dL Glucose 131 H (74-99) mg/dL Calcium 9.1 (8.4-10.2) mg/dL Total Bilirubin 0.6 (0.2-1.3) mg/dL AST 38 H (14-36) U/L ALT 33 (4-34) U/L Alkaline Phosphatase 72 (38-126) U/L Total Protein 6.8 (6.3-8.2) g/dL Albumin 3.7 (3.5-5.0) g/dL Assessment and Plan (1) Fall Narrative/Plan: 89-year-old female with persistent dizziness after recent fall. Await neurology evaluation. Appreciate hospitalist consultation. Resume home medications. Current Visit: No Status: Acute Code(s): W19.XXXA - UNSPECIFIED FALL, INITIAL ENCOUNTER SNOMED Code(s): 9160136
[2021-08-21 11:35] LABS: Basophils # (A) 0.06 X 10*3/uL (0.00-0.10); Basophils % (A) 1.3 %; Eosinophils # (A) 0.17 X 10*3/uL (0.04-0.35); Eosinophils % (A) 3.7 %; HCT 36.7 % (37.2-46.3); HGB 12.4 g/dL (12.0-15.0); Immature Grans, Automated 0.4 %; Lymphocytes # (A) 0.61 X 10*3/uL (0.90-5.00); Lymphocytes % (A) 13.2 %; MCH 30.5 pg (27.0-32.0); MCHC 33.8 g/dL (32.0-37.0); MCV 90.2 fL (80.0-97.0); Mean Platelet Volume 9.8 fL (9.5-12.2); Monocytes # (A) 0.68 X 10*3/uL (0.20-1.00); Monocytes % (A) 14.8 %; NRBC Per 100 WBC 0 /100 WBCS (0.0-0.0); Neutrophils # (A) 3.07 X 10*3/uL (1.80-7.70); Neutrophils % (A) 66.6 %; Platelet Count 264 X 10*3/uL (140-440); RBC 4.07 X 10*6/uL (4.10-5.20); WBC 4.61 X 10*3/uL (4.50-10.00)
[2021-08-21 11:44] LABS: African American GFR (CKD) 66.2 (60.0-200.0); Albumin 3.5 g/dL (3.8-4.9); Albumin/Globulin Ratio 1.4 (1.60-3.17); Anion Gap 10.1 mmol/L (10.00-18.00); BUN/Creat Ratio 20.78 Ratio (12.00-20.00); Blood Urea Nitrogen 18.7 mg/dL (9.0-27.0); Calcium 9.1 mg/dL (8.7-10.3); Carbon Dioxide 20.9 mmol/L (20.0-27.5); Globulin 2.5 g/dL (1.6-3.3); Magnesium 1.7 mg/dL (1.5-2.4); Non-African American GFR(CKD) 57.1 (60.0-200.0); Potassium 4.1 mmol/L (3.5-5.5); Total Bilirubin 0.5 mg/dL (0.30-1.20)
--- NOTE | 2021-08-21 12:38 | P.CNNES ---
History of Present Illness Consult date: 08/21/21 Requesting physician: Bhupinder Juares Reason for Consult: Vertigo History of Present Illness: Patient is a 89-year-old female with history of mild dementia, came to the hospital yesterday at 12:24 PM for evaluation of persistent dizziness and vertigo after the fall. Patient's daughter in law was present today, who mentioned that on 08/18/2021 patient and her family came back from a banquet. After she got out of the car, she walked up to the step to get into the house. She tried to step on the one- step to get into the house, when she lost balance, fell backwards hitting head on the cement. Patient's daughter in law believes that patient did not pass out, did not lose consciousness, as she was very close to her, saw her fall, and as soon as she got to her, she was awake, talking normally. Patient feels that she may have blacked out, as she does not remember the fall. The family called EMS at 7:27 PM and she was brought to the hospital. Patient underwent computed tomography scan of the head and neck, was reported as normal, was discharged home from the ER. However since then patient has been very dizzy, severe vertigo, couldn't get her to sit up, or to get her to go to the bathroom. Patient does have a history of dementia, difficulty with remembering names but the memory functions has not become worse than baseline. Patient denies headache. Patient notices increased dizziness when she is laying down in the bed, and turns to the right or left, or when she tries to sit up. Vital signs arrival blood pressure 148/58, pulse rate 51, temperature 98.1. Blood test shows normal CBC, PT/PTT, sodium 134 potassium 4.2, normal renal functions. AST is 38, ALT 33. Troponin negative. CT head showed no acute intracranial process. Posterior scalp hematoma. Nonspecific white matter changes, likely secondary to chronic small vessel ischemic disease. I personally reviewed CT head, agree with the findings. Paranasal sinuses appears clear. Patient has been started on Antivert, and her dizziness is much improved. Patient complains of soreness in the scalp region where she hit her head, but no headache. Patient has history of diabetes, pacemaker placement. No tobacco or alcohol. Patient has diabetes, on Januvia, digoxin, B12 1000 g tablet orally daily, donepezil 5 mg Coreg 3.125 mg twice a day, levothyroxine and metformin. Review of Systems All 14 points of review of system, reviewed, unremarkable except as mentioned above. No numbness, tingling, focal weakness, double vision or loss of vision. No facial droop, slurred speech. Past Medical History Past Medical History: Chest Pain / Angina, Dementia, Diabetes Mellitus, Thyroid Disorder History of Any Multi-Drug Resistant Organisms: None Reported Past Surgical History: Cholecystectomy, Pacemaker Past Anesthesia/Blood Transfusion Reactions: No Reported Reaction Type of Cardiac Device: Permanent Pacemaker Device Placement Date:: 07/18/20 Past Psychological History: No Psychological Hx Reported Smoking Status: Never smoker Past Alcohol Use History: None Reported Past Drug Use History: None Reported - Past Family History Mother History Unknown: Yes Medications and Allergies Home Medications Medication Instructions Recorded Confirmed Type Ascorbic Acid [Vitamin C] 500 mg PO DAILY 08/05/20 08/20/21 History Cyanocobalamin (Vitamin B-12) 1,000 mcg PO DAILY 08/05/20 08/20/21 History [Vitamin B-12] Digoxin [Lanoxin] 250 mcg PO SUTUWEFRSA 08/05/20 08/20/21 History Donepezil [Aricept] 5 mg PO HS 08/05/20 08/20/21 History carvediloL [Coreg] 3.125 mg PO BID 08/05/20 08/20/21 History sitaGLIPtin PHOSPHATE [Januvia] 25 mg PO AC-BRKFST 08/05/20 08/20/21 History Levothyroxine Sodium [Synthroid] 88 mcg PO DAILY 08/20/21 08/20/21 History metFORMIN HCL ER [Glucophage XR] 500 mg PO BID 08/20/21 08/20/21 History Allergies Allergy/AdvReac Type Severity Reaction Status Date / Time cephalexin Allergy Unknown Verified 08/20/21 15:22 nitrofurantoin Allergy Unknown Verified 08/20/21 15:22 Sulfa (Sulfonamide Allergy Unknown Verified 08/20/21 15:22 Antibiotics) Physical Examination - Vital Signs Vital Signs: Vital Signs Temp Pulse Pulse Resp BP BP Pulse Ox 08/20/21 15:24 97.7 F 55 L 15 144/58 97 08/20/21 15:09 52 L 16 99 08/20/21 14:25 50 L 16 99 08/20/21 12:27 98.1 F 51 L 18 148/58 98 Intake and Output 08/20/21 08/20/21 08/20/21 06:59 14:59 22:59 Other: Weight 61.235 kg 61.235 kg Patient is an elderly female, very pleasant, in no acute distress. Patient is laying comfortably in the bed. Patient is alert awake. Speech and language functions are normal. Attention, concentration intact and fund of knowledge is slightly limited. Detail cognitive function testing deferred. On cranial examination, pupils are round and reacting to light, visual flores are full on confrontation, extraocular muscles are intact with no nystagmus. Face is symmetric, tongue protrudes to the midline. Palatal elevation and sensation normal, hearing and shoulder shrug normal, facial sensation normal. Shoulder shrug normal. On muscle strength testing, there is no pronator drift and the strength is normal in arms and legs distally and proximally. Deep tendon reflexes are symmetric, 2 at the biceps, brachioradialis, 2+ at the knees, 1+ ankles and plantars downgoing bilaterally. Sensory to touch is equal with no neglect. Cerebellar function showed no ataxia for [id number] testing. No dysdiadochokinesia. Tone and bulk of muscles normal. Gait not checked. On general examination, there is no carotid bruit or murmur, S1-S2 audible. Abdomen is soft nontender. Bowel sounds present, no organomegaly. Chest is clear. Peripheral pulses are present. No edema. Results - Laboratory Findings CBC and BMP: 08/21/21 07:36 08/21/21 07:36 Abnormal Lab Findings: Abnormal Labs 08/20/21 08/20/21 13:10 13:10 Lymphocytes # 0.4 L Sodium 134 L Carbon Dioxide 21 L BUN 19 H Glucose 131 H Magnesium 1.5 L AST 38 H Assessment and Plan Assessment: * Status post fall 08/18/2021 due to losing balance, hitting head on the cement floor. * Postconcussive syndrome with positional vertigo, probable BPPV. Plan: * Continue Antivert as needed. Patient is already feeling much better. Still feels dizzy, when she rolls over in the bed or when she gets up. * Hopefully the vertigo will slowly resolve, may take few days to a week. If the symptoms persist beyond a couple weeks, may benefit from BPPV. * CT head showed no acute process. No other neurological workup indicated. * Neurologically clear. Discussed with patient's [id number] in detail. * May resume her aspirin * Thank you for the consult.
--- NOTE | 2021-08-21 15:03 | PN ---
PROGRESS NOTE DATE OF SERVICE: 08/21/2021 This 89-year-old woman was admitted after a fall, is complaining of some dizziness. The patient also had a posterior scalp hematoma also. No chest pain. No palpitations. Surgery is following the patient closely. PHYSICAL EXAMINATION: Pulse is 60. Blood pressure is 147/72, respirations 17. HEENT: Conjunctivae normal. Neck: No JVD. Cardiovascular: S1, S2 muffled. Respirations: Breath sounds diminished in the bases. Abdomen: Soft. Nervous system: Diffusely weak. posterior scalp hematoma. LABS: Present labs are reviewed. ASSESSMENT: 1. Fall and posterior scalp hematoma. 2. Nausea, vomiting, dizziness, rule out transient ischemic attack or vertebrobasilar ischemia. 3. Hypomagnesemia. 4. Dementia. 5. Diabetes mellitus, type 2. 6. Multiple medical issues. RECOMMENDATIONS AND DISCUSSION: Recommend to continue current medications, management and symptomatic treatment. Otherwise continue to monitor. PT/OT evaluation. Further recommendations to follow. MMODL / IJN: [id number] /
[2021-08-21] MEDS: DIGOXIN 250 MCG TAB PO SCH (17:16)
[2021-08-21] MEDS: DONEPEZIL 5 MG TAB PO SCH (21:16)
[2021-08-22] MEDS: IBUPROFEN 600 MG TAB PO PRN (08:23)
[2021-08-22] MEDS: carvediloL 3.125 MG TAB PO SCH ×2 (08:24→20:51)
[2021-08-22] MEDS: LEVOTHYROXINE 88 MCG TAB PO SCH (08:24)
[2021-08-22] MEDS: FAMOTIDINE 20 MG TAB PO SCH (08:24)
[2021-08-22] MEDS: MECLIZINE 25 MG TAB PO SCH ×3 (08:24→20:50)
[2021-08-22] MEDS: metFORMIN 500 MG TAB PO SCH ×2 (08:24→20:50)
[2021-08-22] MEDS: LINAGLIPTIN 5 MG TABLET PO SCH (08:24)
[2021-08-22] MEDS: CYANOCOBALAMIN 500 MCG TAB PO SCH (08:24)
[2021-08-22] MEDS: ASCORBIC ACID 500 MG TAB PO SCH (08:24)
[2021-08-22 11:19] LABS: Glucose,Whole Blood 94 mg/dL (75-99)
--- NOTE | 2021-08-22 12:00 | P.PN ---
Subjective Progress Note Date: 08/22/21 CHIEF COMPLAINT: Status post fall HISTORY OF PRESENT ILLNESS: Patient is status post fall with hitting the posterior aspect of the head. Patient still complaining of dizziness. She reports that she had dizziness after using the bathroom and getting back to the chair. Neurology does have her on Antivert She denies any headache. Denies any nausea. She reports a small blue bowel movement with flatus and is complaining of some abdominal bloating and feeling of constipation. Patient seen by neurology. Afebrile PHYSICAL EXAM: VITAL SIGNS: Reviewed. GENERAL: Well-developed in no acute distress. HEENT: No sclera icterus. Extraocular movements grossly intact. Moist buccal mucosa. Head is posterior scalp swelling with scab noted ABDOMEN: Soft. Mildly distended. Mild tenderness of the lower abdomen. NEUROLOGIC: Alert and oriented. Cranial nerves II through XII grossly intact. ASSESSMENT: 1. Fall with injury to head 2. Post concussive syndrome with positional vertigo. Followed by neurology PLAN: -We'll transfer service to medical service -Continue supportive care -Continue to work with PT OT -Add Colace for constipation -Continue regular diet Physician Golf Ball Inspector note has been reviewed by physician. Signing provider agrees with the documented findings, assessment, and plan of care. I have personally seen and examined the patient, reviewed the M48 M60 [employer] /PAs history, exam and MDM and agree with the assessment and plan as written. Based on total visit time, I have performed more than 50% of the visit. As above: Patient says her pain is improved. Her dizziness is also improved. Anticipate probable discharge tomorrow. Add Colace for constipation. Objective - Vital Signs Vital signs: Vital Signs Temp 97.5 F L 08/22/21 08:00 Pulse 51 L 08/22/21 08:00 Resp 16 08/22/21 02:00 BP 118/58 08/22/21 08:00 Pulse Ox 94 L 08/22/21 08:00 FiO2 Intake & Output 08/21/21 08/22/21 08/22/21 18:59 06:59 18:59 Output Total 600 620 Balance -600 -620 Output: Urine 600 620 Straight 600 Other: Voiding Method Toilet Toilet # Voids 3 1 - Labs CBC & Chem 7: 08/21/21 07:36 08/22/21 15:09
[2021-08-22] MEDS: DOCUSATE 100 MG CAP PO SCH ×2 (12:26→20:50)
[2021-08-22 15:44] LABS: African American GFR (CKD) 76 (>60 ml/min/1.73 sqM); Anion Gap 7 mmol/L; Blood Urea Nitrogen 15 mg/dL (7-17); Calcium 8.5 mg/dL (8.4-10.2); Carbon Dioxide 22 mmol/L (22-30); Chloride 108 mmol/L (98-107); Glucose 91 mg/dL (74-99); Magnesium 1.4 mg/dL (1.6-2.3); Non-African American GFR(CKD) 66 (>60 ml/min/1.73 sqM); Potassium 4.3 mmol/L (3.5-5.1); Sodium 137 mmol/L (137-145)
[2021-08-22] MEDS ORDERED: Magnesium Replacement Protocol 1 EACH MISC MISCELLANE PRN (16:05)
[2021-08-22] MEDS: MAGNESIUM SULFATE-D5W PMX 1 GM in DEXTROSE/WATER 1 100ML.BAG IVPB SCH ×2 (16:17→16:18)
[2021-08-22 16:52] LABS: Glucose,Whole Blood 97 mg/dL (75-99)
[2021-08-22] MEDS: SODIUM CHLORIDE 0.9% 1,000 ML IV SCH (17:12)
[2021-08-22 20:27] LABS: Glucose,Whole Blood 146 mg/dL (75-99)
[2021-08-22] MEDS: DONEPEZIL 5 MG TAB PO SCH (20:51)
--- NOTE | 2021-08-22 22:06 | P.PN ---
Subjective Progress Note Date: 08/22/21 This is an 89 year old female who is admitted after fall resulting in scalp hematoma and postconcussion vertigo. She is currently reporting tenderness to her scalp which there is visible scabbing and hematoma. Recommending to offset pressure, invalid cushion has been ordered patient can try to use for pillow support. Additionally, she is having urinary retention resulting in multiple strait catheterizations and indwelling catheter has been placed today. Urinalysis has been ordered, she is having some suprapubic tenderness on palpation. Denies dysuria. Her bowel movements have been minimal, reports she has not had a good size BM in quite some time. Will check an abdominal xray in the morning. Colace has been added for constipation. She reports improvement in her dizziness and will continue on antivert. Orthostatit blood pressures are negative today. Plan for voiding trial tomorrow and possible discharge. PT recommending home with homecare and 24/7 supervision. Magnesium is 1.4 today. Review of Systems Constitutional: Denied any fatigue denied any fever. Cardio vascular: denied any chest pain, palpitations Gastrointestinal: denied any nausea, vomiting, diarrhea. Reports constipation, suprapubic tenderness. Pulmonary: Denied any shortness of breath cough Neurologic denied any new focal deficits, reports dizziness is improving. All inpatient medications were reviewed and appropriate changes in these medications as dictated in the interval history and assessment and plan. PHYSICAL EXAMINATION: GENERAL: The patient is alert and oriented x3, not in any acute distress. Well developed, well nourished. HEENT: Pupils are round and equally reacting to light. EOMI. No scleral icterus. No conjunctival pallor. Normocephalic, atraumatic. No pharyngeal erythema. No thyromegaly. CARDIOVASCULAR: S1 and S2 present. No murmurs, rubs, or gallops. PULMONARY: Chest is clear to auscultation, no wheezing or crackles. ABDOMEN: Soft, mild suprapubic tenderness with palpation, nondistended, normoactive bowel sounds. No palpable organomegaly. MUSCULOSKELETAL: No joint swelling or deformity. EXTREMITIES: No cyanosis, clubbing, or pedal edema. NEUROLOGICAL: Gross neurological examination did not reveal any focal deficits. SKIN: No rashes. Hematoma with scabbing to posterior crown of head Assessment and Plan Assessment Fall secondary to loss of balance with posterior scalp hematoma Postconcussion vertigo improving with antivert Hypomagnesemia Dementia Diabetes Mellitus type 2 Constipation Urinary retention requiring indwelling catheter Hypothyroidism Status post permanent pacemaker History of cardiomyopathy GI Prophylaxis Plan Continue with antivert Indwelling catheter overnight and plan for voiding trial tomorrow Check urinalysis Colace has been added for constipation Replace magnesium AM labs Picked up as attending from general surgery The impression and plan of care has been dictated by Jennifer Pitts, Nurse Practitioner as directed. Dr. Magy MD I have performed a history and physical examination and medical decision making of this patient, discussed the same with the dictator, and agree with the dictators assessment and plan as written, documented as a scribe. Based on total visit time, I have performed more than 50% of this visit. Objective - Vital Signs Vital signs: Vital Signs Temp 97.5 F L 08/22/21 14:00 Pulse 57 L 08/22/21 14:00 Resp 16 08/22/21 02:00 BP 147/61 08/22/21 14:00 Pulse Ox 100 08/22/21 14:00 FiO2 Intake & Output 08/21/21 08/22/21 08/22/21 18:59 06:59 18:59 Output Total 049 194 4799 Balance -600 -620 -1200 Output: Urine 117 545 5903 Straight 600 Other: Voiding Method Toilet Toilet # Voids 3 1 # Bowel Movements 1 - Labs CBC & Chem 7: 08/21/21 07:36 08/22/21 15:09 Assessment and Plan Time with Patient: Less than 30
[2021-08-23] MEDS: IBUPROFEN 600 MG TAB PO PRN (00:09)
[2021-08-23 01:51] VITALS: TEMP 97.6
[2021-08-23 03:57] LABS: Appearance,Urine Clear (Clear); Bilirubin,Urine Negative (Negative); Blood,Urine Negative (Negative); Color,Urine Colorless; Glucose,Urine (UA) Negative (Negative); Ketones,Urine Negative (Negative); Leukocyte Esterase,Urine Negative (Negative); Nitrite,Urine Negative (Negative); Protein,Urine Negative (Negative); Specific Gravity,Urine 1.004 (1.001-1.035); Urobilinogen,Urine <2.0 mg/dL (<2.0)
--- NOTE | 2021-08-23 06:51 | XR ---
EXAMINATION TYPE: XR abdomen 1V DATE OF EXAM: 08/23/2021 Comparison: None Clinical History: 89-year-old female constipation Findings: Supine imaging is limited for assessment of free air. Cholecystectomy clips. Possible small 4 mm calc ification right mid abdomen. Degenerative changes lower lumbar spine. Nonobstructive bowel gas patter n. Moderate overall stool burden. Air and stool extends distally to the rectum. Impression: Moderate stool burden. Nonobstructive bowel gas pattern. Possible 4 mm right renal calculus. Cholecys tectomy clips.
[2021-08-23 06:55] LABS: Glucose,Whole Blood 91 mg/dL (75-99)
[2021-08-23] MEDS: DOCUSATE 100 MG CAP PO SCH (07:25)
[2021-08-23] MEDS: ASCORBIC ACID 500 MG TAB PO SCH (07:25)
[2021-08-23] MEDS: MECLIZINE 25 MG TAB PO SCH (07:25)
[2021-08-23] MEDS: metFORMIN 500 MG TAB PO SCH (07:25)
[2021-08-23] MEDS: carvediloL 3.125 MG TAB PO SCH (07:26)
[2021-08-23] MEDS: LINAGLIPTIN 5 MG TABLET PO SCH (07:26)
[2021-08-23] MEDS: FAMOTIDINE 20 MG TAB PO SCH (07:26)
[2021-08-23] MEDS: CYANOCOBALAMIN 500 MCG TAB PO SCH (07:26)
[2021-08-23] MEDS: LEVOTHYROXINE 88 MCG TAB PO SCH (07:26)
[2021-08-23] MEDS ORDERED: bisacodyL 10 MG SUPP RECTAL STA (09:23)
[2021-08-23 11:34] LABS: Glucose,Whole Blood 98 mg/dL (75-99)
--- NOTE | 2021-08-23 12:48 | P.PN ---
Subjective Progress Note Date: 08/23/21 Principal diagnosis: Status post fall Patient had another dizzy spell earlier today. She was mildly short of breath today. She did have some bowel movements that were loose after starting stool softeners yesterday. Denies pain. Objective - Vital Signs Vital signs: Vital Signs Temp 97.6 F 08/23/21 01:50 Pulse 51 L 08/23/21 08:00 Resp 18 08/23/21 08:00 BP 160/74 08/23/21 08:00 Pulse Ox 97 08/23/21 08:00 FiO2 Intake & Output 08/22/21 08/23/21 08/23/21 18:59 06:59 18:59 Output Total 1200 1825 Balance -1200 -1825 Output: Urine 1200 1825 Other: Voiding Method Indwelling Catheter Indwelling Catheter Indwelling Catheter # Voids 500 # Bowel Movements 1 0 1 - Exam Abdomen: Soft, nontender, nondistended - Labs CBC & Chem 7: 08/21/21 07:36 08/22/21 15:09 Labs: Abnormal Lab Results - Last 24 Hours (Table) 08/22/21 08/22/21 Range/Units 15:09 20:24 Chloride 108 H (98-107) mmol/L POC Glucose (mg/dL) 146 H (75-99) mg/dL Magnesium 1.4 L (1.6-2.3) mg/dL Assessment and Plan (1) Fall Narrative/Plan: Patient doing well from a surgery/trauma point of view. Tolerating diet. She is now moving her bowels well. Service was transferred to medicine yesterday. We'll sign off. Please call if needed. Current Visit: No Status: Acute Code(s): W19.XXXA - UNSPECIFIED FALL, INITI AL ENCOUNTER SNOMED Code(s): 0556027
--- NOTE | 2021-08-23 14:32 | P.DS ---
Providers Date of admission: 08/20/21 14:26 Attending physician: Lucie Bhatti Consults: 08/20/21 14:25 Consult Physician Urgent Consulting Provider: Davi Conley Consult Reason/Comments: Fall Scalp Hematoma Do you want consulting provider notified?: Yes Consult Physician Urgent Consulting Provider: Cony Flannery Consult Reason/Comments: Vertigo Do you want consulting provider notified?: Yes Primary care physician: Physician Nonstaff Hospital Course: Final Diagnosis Fall secondary to loss of balance with posterior scalp hematoma Postconcussion vertigo improving with antivert Hypomagnesemia, resolved Dementia Diabetes Mellitus type 2 Constipation Urinary retention requiring indwelling catheter Hypothyroidism Status post permanent pacemaker History of cardiomyopathy Discharge Disposition Patient stable for discharge to rehab today. She will discharge with indwelling catheter and leave in place overnight for urinary retention. Complete void trial tomorrow 08/24/2021. Follow up with primary care in 1-2 days. Also follow up with cardiology. Neurology follow up as needed if symptoms persist beyond a couple of weeks. Hospital Course This is an 89 year old female who is admitted after fall resulting in scalp hematoma and postconcussion vertigo. She was admitted under general surgery/trauma team and had neurology evaluation. Brain CT completed showing no acute intracranial process, posterior scalp hematoma, and nonspecific white matter changes, likely secondary to chronic small vessel ischemia. She is currently reporting tenderness to her scalp which there is visible scabbing and hematoma. Recommending to offset pressure, invalid cushion has been ordered patient can try to use for pillow support. Additionally, she is having urinary retention resulting in multiple strait catheterizations and indwelling catheter has been placed and will continue with IDC and complete voiding trial tomorrow on 08/23/21. Urinalysis is negative for infection. Denies dysuria. Her bowel movements have been minimal, reports she has not had a good size BM in quite some time. Abdominal xray showing moderate stool burden, no obstruction. Colace has been added for constipation and she has now had a loose bowel movement. She reports improvement in her dizziness and will continue on antivert. Orthostatic blood pressures are negative. Magnesium was 1.4 yesterday and patient received supplementation and magnesium improved to 2.1. Family and patient are agreeable to rehab and patient will discharge to [facility] before returning home to increase her strength as she was fairly independent prior to fall. 08/23/2021 Patient had a dizzy spell today while up in shower, she did have some shortness of breath which she does appear slightly anxious about the dizziness. Overall there is improvement and she will continue on antivert TID. Labs have improved since admission, sodium is now 137, potassium 4.2, BUN 15, creatinine 0.80, blood glucose in the 90s. Most recent vital signs, patient is afebrile, heart rate 51 she is V Paced on composite science teacher, blood pressure 160/74, 97% on room air. She is denying headache, chest pain, shortness of breath. Denies nausea, vomiting, diarrhea. Denies dysuria. She is tolerating diet. Lungs are clear, S1 S2 auscultated, abdomen is soft and non tender with normoactive bowel sounds. She is alert x3. She should follow up with Dr Woodard for pacemaker check up within the next 1-2 weeks. If vertigo persists beyond a couple weeks she should be evaluated for BPPV and also follow up with neurology. Daughter at the bedside updated and all questions and concerns were discussed. Please see medication reconciliation for a list of current medication. Thank you for allowing us to participate in the care of this patient. The impression and plan of care has been dictated by Jennifer Pitts, Nurse Practitioner as directed. Dr. Magy MD I have performed a history and physical examination and medical decision making of this patient, discussed the same with the dictator, and agree with the dictators assessment and plan as written, documented as a scribe. Based on total visit time, I have performed more than 50% of this visit. Patient Condition at Discharge: Fair Plan - Discharge Summary Discharge Rx Participant: Yes New Discharge Prescriptions: New Docusate [Colace] 100 mg PO BID cap Famotidine [Pepcid] 20 mg PO DAILY tab Meclizine [Antivert] 12.5 mg PO TID tab Acetaminophen Tab [Tylenol] 650 mg PO Q6H #4 tab Ibuprofen [Motrin] 600 mg PO QID PRN tab PRN Reason: Pain Continue sitaGLIPtin PHOSPHATE [Januvia] 25 mg PO AC-BRKFST Digoxin [Lanoxin] 250 mcg PO SUTUWEFRSA Cyanocobalamin (Vitamin B-12) [Vitamin B-12] 1,000 mcg PO DAILY Donepezil [Aricept] 5 mg PO HS Ascorbic Acid [Vitamin C] 500 mg PO DAILY carvediloL [Coreg] 3.125 mg PO BID Levothyroxine Sodium [Synthroid] 88 mcg PO DAILY metFORMIN HCL ER [Glucophage XR] 500 mg PO BID Discharge Medication List Ascorbic Acid [Vitamin C] 500 mg PO DAILY 08/05/20 [History] Cyanocobalamin (Vitamin B-12) [Vitamin B-12] 1,000 mcg PO DAILY 08/05/20 [History] Digoxin [Lanoxin] 250 mcg PO SUTUWEFRSA 08/05/20 [History] Donepezil [Aricept] 5 mg PO HS 08/05/20 [History] carvediloL [Coreg] 3.125 mg PO BID 08/05/20 [History] sitaGLIPtin PHOSPHATE [Januvia] 25 mg PO AC-BRKFST 08/05/20 [History] Levothyroxine Sodium [Synthroid] 88 mcg PO DAILY 08/20/21 [History] metFORMIN HCL ER [Glucophage XR] 500 mg PO BID 08/20/21 [History] Acetaminophen Tab [Tylenol] 650 mg PO Q6H #4 tab 08/23/21 [Rx] Docusate [Colace] 100 mg PO BID cap 08/23/21 [Rx] Famotidine [Pepcid] 20 mg PO DAILY tab 08/23/21 [Rx] Ibuprofen [Motrin] 600 mg PO QID PRN tab 08/23/21 [Rx] Meclizine [Antivert] 12.5 mg PO TID tab 08/23/21 [Rx] Follow up Appointment(s)/Referral(s): Nonstaff,Physician [Primary Care Provider] - 1-2 days Care,[facility] [NON-STAFF] - As Needed Discharge Disposition: TRANSFER TO SNF/ECF
[2021-08-23 16:19] VITALS: BP 123/47; PULSE 50; RESP 14
[2021-08-23 16:38] LABS: Glucose,Whole Blood 99 mg/dL (75-99)
== END 2021-08-23 17:45 | DRG 103 ==
LOC: EC 12:24 → 4SSUR 14:26
PROVIDERS: ADMIT Internal Medicine; ATTEND Internal Medicine
DX: F07.81 Postconcussional syndrome (principal); I42.9 Cardiomyopathy, unspecified; S00.03XA Contusion of scalp, initial encounter; H81.10 Benign paroxysmal vertigo, unspecified ear; E03.9 Hypothyroidism, unspecified; E11.9 Type 2 diabetes mellitus without complications; E83.42 Hypomagnesemia; F03.90 Unspecified dementia, unspecified severity, without behavioral disturbance, psychotic disturbance, mood disturbance, and anxiety; K59.00 Constipation, unspecified; R33.9 Retention of urine, unspecified; R11.2 Nausea with vomiting, unspecified; W01.0XXA Fall on same level from slipping, tripping and stumbling without subsequent striking against object, initial encounter; Z79.82 Long term (current) use of aspirin; Z79.84 Long term (current) use of oral hypoglycemic drugs; Z79.890 Hormone replacement therapy; Z79.899 Other long term (current) drug therapy; Z95.0 Presence of cardiac pacemaker
CPT/HCPCS: 36415; 70450; 71046; 71250; 72125; 74018; 80048; 80053; 81003; 83735; 84443; 84484; 85025; 85610; 85730; 93005; 96365; 99285